=== PATIENT | female | born 1945 | race Two or more races ===

== ENCOUNTER 2017-07-10 18:58 | Observation (INO) | payer BC, MEDICARE ==
[~2017-07-10] VITALS: Ht 162.6 cm; Wt 58.5 kg
[2017-07-10] MEDS ORDERED: METHYLPREDNISOLONE SOD SUCC 125 MG/2 ML VIAL IV STA (22:20)
[2017-07-10] MEDS ORDERED: SODIUM CHLORIDE 0.9% 1,000 ML IV ONE (22:20)
[2017-07-10] MEDS ORDERED: IPRATROPIUM BROMIDE (0.02%) 0.5MG/2.5ML NEB HHN STA (22:20)
[2017-07-10] MEDS ORDERED: KETOROLAC 30MG/ML VIAL IV STA (22:20)
[2017-07-10] MEDS ORDERED: ALBUTEROL (0.083%) 2.5MG/3ML NEB HHN STA (22:20)
[2017-07-10] MEDS ORDERED: ASPIRIN 81MG TABLET PO ONE (22:30)
[2017-07-10] MEDS ORDERED: MAGNESIUM 2 G PREMIX 50 ML IV ONE (22:30)
[2017-07-10] MEDS ORDERED: ONDANSETRON HCL 4MG/2ML VIAL IV STA (22:42)
[2017-07-10 23:55] LABS: BASOPHILS % 0.3 % (0.0-2.0); HEMATOCRIT. 39.7 % (36.0-48.0); HEMOGLOBIN. 13.2 g/dL (12.0-16.0); MEAN CORPUSCULAR HEMOGLOBIN 31.2 pg (28.0-32.0); MEAN PLATELET VOLUME 7.3 fl (7.4-10.4); MONOCYTES % 2.9 % (2.0-8.0); NEUTROPHILS % 64.8 % (40.0-76.0); PLATELET 210 x1000/uL (130-400); RED BLOOD CELL COUNT 4.22 mill/uL (4.2-5.4); RED CELL DISTRIBUTION WIDTH 12.6 % (11.6-14.6)
[2017-07-11 00:11] LABS: PROTHROMBIN TIME 10.8 sec (9.4-11.6)
[2017-07-11 00:21] LABS: CHLORIDE 108 mEq/L (98-107); ETHANOL BLOOD < 10 mg/dL; TROPONIN I < 0.02 ng/mL (0.00-0.04)
[2017-07-11] MEDS ORDERED: POTASSIUM BICARB/CIT ACID 25 MEQ TABLET.EFF PO NR (01:15)
[2017-07-11] MEDS ORDERED: CEFTRIAXONE 1 G PREMIX 50 ML IV NR (01:15)
[2017-07-11] MEDS ORDERED: AZITHROMYCIN 500 MG in DEXT 5% WATER 250 ML IV NR (01:15)
[2017-07-11] MEDS: MECLIZINE 25MG TABLET PO NR ×2 (01:29→01:38)
[2017-07-11 08:00] VITALS: BP 139/77
[2017-07-11 09:00] VITALS: BP 139/77
[2017-07-11] MEDS ORDERED: DEXTROSE 50% WATER 50ML SYRINGE IV PRN (11:00)
[2017-07-11 12:00] VITALS: BP 123/68
[2017-07-11] MEDS ORDERED: ACETAMINOPHEN 325MG TABLET PO PRN (12:00)
[2017-07-11] MEDS ORDERED: [UNRECOGNIZED DRUG - OTHER] XX SCH (12:00)
[2017-07-11] MEDS ORDERED: CLONIDINE 0.1MG TABLET PO PRN (12:00)
[2017-07-11] MEDS ORDERED: IPRATROPIUM/ALBUTEROL 0.5-3(2.5)MG/3ML NEB INH PRN (12:00)
[2017-07-11] MEDS ORDERED: ENOXAPARIN 40MG/0.4ML SYR SUBCUT SCH (12:00)
[2017-07-11] MEDS ORDERED: MECLIZINE 25MG TABLET PO PRN (12:00)
[2017-07-11] MEDS ORDERED: ONDANSETRON HCL 4MG/2ML VIAL IV PRN (12:00)
[2017-07-11] MEDS ORDERED: HYDROCODONE/ACETAMINOPHEN 5/325MG TABLET PO PRN (12:00)
[2017-07-11] MEDS: BLOOD SUGAR DIAGNOSTIC STRIP TEST SCH ×3 (12:19→21:40)
[2017-07-11] MEDS: INSULIN LISPRO 100 UNITS/ML SUBCUT SCH ×3 (12:34→21:00)
[2017-07-11] MEDS ORDERED: PNEUMOCOCCAL 23-VAL P-SAC VAC 0.5 ML IM ONE (12:45)
[2017-07-11 13:44] LABS: CHLORIDE 106 mEq/L (98-107)
[2017-07-11 14:46] LABS: CREATINE KINASE 85 IU/L (26-192); TROPONIN I < 0.02 ng/mL (0.00-0.04)
[2017-07-11 16:00] VITALS: BP 116/59
[2017-07-11] MEDS: SODIUM CHLORIDE 0.45% 1,000 ML IV SCH (16:09)
[2017-07-11 20:00] VITALS: BP 121/68
[2017-07-11 20:53] LABS: CLARITY URINE CLEAR (CLEAR); COLOR URINE YELLOW (YELLOW); KETONES URINE NEGATIVE (NEGATIVE); LEUKOCYTE ESTERASE URINE NEGATIVE (NEGATIVE); NITRITE URINE NEGATIVE (NEGATIVE); OCCULT BLOOD URINE TRACE (NEGATIVE); PH URINE 8.5 (4.5-8.0); PROTEIN URINE NEGATIVE (NEGATIVE); SPECIFIC GRAVITY URINE 1.009 (1.005-1.030); UROBILINOGEN URINE 0.2 E.U./dL (0.2-1.0)
[2017-07-11 21:06] LABS: *AMPHETAMINES SCREEN URINE NEGATIVE (NEGATIVE); *BARBITURATES SCREEN URINE NEGATIVE (NEGATIVE); *BENZODIAZEPINES SCREEN URINE NEGATIVE (NEGATIVE); *COCAINE SCREEN URINE NEGATIVE (NEGATIVE); CANNABINOID URINE SCREEN NEGATIVE (NEGATIVE); METHADONE URINE SCREEN NEGATIVE (NEGATIVE); OPIATES URINE SCREEN NEGATIVE (NEGATIVE); PHENCYCLIDINE URINE SCREEN NEGATIVE (NEGATIVE)
[2017-07-11 21:20] LABS: CREATINE KINASE 85 IU/L (26-192); TROPONIN I < 0.02 ng/mL (0.00-0.04)
[2017-07-11] MEDS ORDERED: LEVO50TA8 PO (22:57)
[2017-07-11] MEDS ORDERED: LOSA100T14 PO (22:57)
[2017-07-11] MEDS ORDERED: ATOR20TA65 PO (22:57)
[2017-07-12] VITALS: BP 103/56
[2017-07-12] MEDS ORDERED: CEFTRIAXONE 1 G PREMIX 50 ML IV SCH (01:00)
[2017-07-12] MEDS ORDERED: AZITHROMYCIN 500 MG in SODIUM CHLORIDE 0.9% 250 ML IV SCH (02:00)
[2017-07-12 04:00] VITALS: BP_SYST 110; BP_SYST 124; BP_SYST 128; BP_DIAS 66; BP_DIAS 67; BP_DIAS 70
[2017-07-12] MEDS: BLOOD SUGAR DIAGNOSTIC STRIP TEST SCH (05:39)
[2017-07-12] MEDS: INSULIN LISPRO 100 UNITS/ML SUBCUT SCH (05:39)
[2017-07-12 06:35] LABS: T4 FREE 1.06 ng/dL (0.76-1.46)
[2017-07-12 06:55] LABS: BASOPHILS % 0.5 % (0.0-2.0); EOSINOPHILS % 0.8 % (0.0-5.0); HEMATOCRIT. 34.3 % (36.0-48.0); HEMOGLOBIN. 11.7 g/dL (12.0-16.0); LYMPHOCYTES % 37.5 % (20.0-50.0); MEAN CORPUSCULAR HEMOGLOBIN 32.1 pg (28.0-32.0); MEAN CORPUSCULAR VOLUME 94.1 fL (81.0-99.0); MEAN PLATELET VOLUME 7.6 fl (7.4-10.4); MONOCYTES % 7.2 % (2.0-8.0); PLATELET 207 x1000/uL (130-400); RED BLOOD CELL COUNT 3.64 mill/uL (4.2-5.4); RED CELL DISTRIBUTION WIDTH 12.7 % (11.6-14.6)
[2017-07-12 08:00] VITALS: BP_SYST 118; BP_SYST 122; BP_SYST 124; BP_DIAS 57; BP_DIAS 64; BP_DIAS 65
[2017-07-12] MEDS: SODIUM CHLORIDE 0.45% 1,000 ML IV SCH (08:23)
[2017-07-12] MEDS ORDERED: ASPIRIN 81MG EC TABLET PO SCH (09:00)
[2017-07-12] MEDS ORDERED: PROMETHAZINE HCL 6.25 MG/5 ML 118ML PO PRN (10:30)
[2017-07-12] MEDS ORDERED: BUDESONIDE 0.5MG/2ML NEB HHN SCH (11:30)
[2017-07-12 11:33] VITALS: BP 118/65
== END 2017-07-12 12:00 | disposition home or self-care (01) ==
LOC: ER 20:43 → INTOOBSV 07-11 01:10 → 5WST 07-11 01:10 → ENRESERV 07-11 07:03
PROVIDERS: ADMIT Internal Medicine; ATTEND Internal Medicine
DX: R06.02 Shortness of breath (principal); R05 Cough; R42 Dizziness and giddiness; I10 Essential (primary) hypertension; E78.5 Hyperlipidemia, unspecified; E11.9 Type 2 diabetes mellitus without complications; Z87.442 Personal history of urinary calculi; Z79.899 Other long term (current) drug therapy; Z23 Encounter for immunization
CPT/HCPCS: 36415; 70450; 71045; 80048; 80053; 80061; 80305; 81001; 82550; 82962; 83605; 84439; 84443; 84484; 85025; 85610; 87040; 87086; 87804; 90471; 93005; 93880; 94640; 96361; 96365; 96366; 96367; 96368; 96372; 96375; 99285; G0378; G0482; J0456; J0696; J1650; J1815; J1885; J2405; J2930; J3475; J7030; J7611; 90732; J7050; J7060; J8597; Q0169